=== PATIENT | female | born 1955 | race Caucasian/White ===

== ENCOUNTER 2020-06-06 23:47 | Emergency (ER) | payer BC ==
[~2020-06-06] VITALS: Ht 162.6 cm; Wt 97.5 kg
[2020-06-07 00:08] VITALS: Ht 162.6 cm; Wt 97.5 kg
[2020-06-07 00:28] LABS: BASOPHILS 0.3 % (0-2); EOSINOPHILS 1.2 % (0-7); HEMATOCRIT 40.2 % (36.0-48.0); HEMOGLOBIN 13.7 g/dL (12-16); IMMATURE GRANULOCYTES 0.3 % (0-5); LYMPHOCYTE ABS# 2.37 10x3/uL (1.18-3.74); LYMPHOCYTES 20.6 % (15-50); MCH 29.8 pg (26.0-34.0); MCHC 34.1 g/dL (31.0-37.0); MCV 87.4 fL (80.0-100.0); MEAN PLATELET VOLUME 9.9 fL (7.4-10.4); MONOCYTES 5.1 % (2-11); NEUTROPHIL ABS# 8.34 10x3/uL (1.56-6.13); NEUTROPHILS 72.5 % (40-80); PLATELET COUNT 301 10x3/uL (130-400); RDW 13.6 % (11.5-14.5); WBC 11.5 10x3/uL (4.8-10.8)
[2020-06-07 00:32] LABS: APTT 24.4 SECONDS (22.8-39.4); INR 1.04 (0.85-1.17); PROTIME 12.6 SECONDS (11.6-15.0)
[2020-06-07 00:41] LABS: CALC OSMOLALITY 291 mosm/kg (275-300); CALCIUM 8.9 mg/dL (8.5-10.1); CARBON DIOXIDE 26.1 mmol/L (21.0-32.0); CHLORIDE - SERUM 104 mmol/L (98-107); CREATININE - SERUM 1.1 mg/dL (0.6-1.3); GLUCOSE 154 mg/dL (74-106); SODIUM 143 mmol/L (136-145); UREA NITROGEN 25 mg/dL (7-18); eGFR NON AFRICAN AMERICAN 53 mL/min (90-120)
[2020-06-07 00:51] LABS: ALBUMIN 3.7 g/dL (3.4-5.0); ALKALINE PHOSPHATASE 106 U/L (30-120); ALT (SGPT) 31 U/L (10-68); BILIRUBIN - TOTAL 0.19 mg/dL (0.2-1.3); CKMB 1.6 U/L (0.0-3.6); CREATINE KINASE 90 UL (21-215); PROTEIN - SERUM 7.4 g/dL (6.4-8.2); THYROID STIMULATING HORMONE 4.25 uIU/mL (0.36-3.74); TROPONIN-I < 0.017 ng/mL (0.000-0.060)
[2020-06-07 01:30] VITALS: BP 172/69
== END 2020-06-07 03:03 | disposition other institution (70) ==
LOC: D.ER 23:47 → EDBD 23:47 → D.ER 06-07 03:03
PROVIDERS: Family Medicine
DX: I63.9 Cerebral infarction, unspecified (principal); G81.91 Hemiplegia, unspecified affecting right dominant side